=== PATIENT | female | born 1930 | race Caucasian/White ===

== ENCOUNTER → 2016-03-01 | Outpatient (CLI) | payer OTHER ==
--- NOTE | 2016-03-01 19:02 | DX ---
PA lateral and bilateral oblique views of the chest History: Cough, history of asthma. Pain. Comparison: CT chest April 22, 2015. PA and lateral chest April 17, 2015. Findings: The lungs are hyperexpanded mild interstitial prominence, with stable interstitial opacities most pro minent in the left lung base. There is no pneumothorax or pleural effusion. Heart size is normal. Mil d degenerative change is present in the spine. Left axillary surgical clips are noted. Impression: Stable chest with no acute findings.
== END ==
LOC: FIMAGING 16:37
PROVIDERS: ATTEND Family Medicine
DX: R07.2 Precordial pain (principal); R09.89 Other specified symptoms and signs involving the circulatory and respiratory systems; R05 Cough

== ENCOUNTER → 2016-08-22 | Outpatient (CLI) | payer OTHER | LOC: BHFA 14:00 | PROVIDERS: ATTEND Internal Medicine Cardiovascular Disease | DX: I25.10 Atherosclerotic heart disease of native coronary artery without angina pectoris (principal); R06.00 Dyspnea, unspecified ==

== ENCOUNTER → 2017-08-22 | Outpatient (CLI) | payer OTHER | LOC: FIMAGING 12:31 | PROVIDERS: ATTEND Family Medicine Sports Medicine | DX: M25.551 Pain in right hip (principal); M16.0 Bilateral primary osteoarthritis of hip ==

== ENCOUNTER → 2017-09-04 | Outpatient (CLI) | payer OTHER | LOC: FIMAGING 11:54 | PROVIDERS: ATTEND Family Medicine Sports Medicine | DX: M24.151 Other articular cartilage disorders, right hip (principal); M76.01 Gluteal tendinitis, right hip; M76.891 Other specified enthesopathies of right lower limb, excluding foot ==

== ENCOUNTER → 2017-09-18 | Outpatient (CLI) | payer OTHER | LOC: FIMAGING 12:18 | PROVIDERS: ATTEND Family Medicine Sports Medicine | DX: J90 Pleural effusion, not elsewhere classified (principal); R91.8 Other nonspecific abnormal finding of lung field; R59.9 Enlarged lymph nodes, unspecified; R93.2 Abnormal findings on diagnostic imaging of liver and biliary tract ==

== ENCOUNTER → 2017-10-31 | Outpatient (CLI) | payer OTHER ==
[~2017-10-31] MED LIST: LIDOCAINE 1% 300 MG/30 ML SDV ONE
== END ==
LOC: FIMAGING 10:54
PROVIDERS: ATTEND Family Medicine Sports Medicine
DX: Z53.8 Procedure and treatment not carried out for other reasons (principal)